=== PATIENT | female | born 2000 | race Caucasian/White ===

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

== ENCOUNTER 2023-06-27 08:16 | Emergency (ER) | payer BC, MEDICAID ==
[2023-06-27 08:46] VITALS: O2SAT 100
--- NOTE | 2023-06-27 09:33 | ED Physician Documentation ---
PD HPI SKIN - Stated complaint Stated Complaint: BRUISES STOMACH/RT LEG - Chief complaint Chief Complaint: General - History obtained from History obtained from: Patient - History of Present Illness Timing - onset: How many months ago (1) Timing - duration: Months (1) Timing - details: Gradual onset, Still present (she has noted bruising on arms and legs, some on abdomen over the past month. Not tender and not aware of abrupt injuries. Notes bruises and then they fade, but others arise. No petechia, but are 2-3 cm sized areas. No bruising in nonexposed areas (inner thighs, underarms, neck, etcv).) Location: Other (arms and legs, lower abd) Quality / character: Discolored. No: Painful, Vesicular Associated symptoms: Other (generally faitigued and tired. Able to do regular work during the day, full day. Has had some weight loss of about 15-20 lbs during the time. 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 Holds against abd). No: Fever, Myalgias, Joint pain, Headache Similar symptoms before: Has not had sx before Review of Systems Constitutional: reports: Fatigue. denies: Fever, Chills Nose: denies: Rhinorrhea / runny nose, Congestion, Epistaxis Throat: denies: Sore throat Cardiac: denies: Palpitations Respiratory: denies: Dyspnea, Cough GI: denies: Abdominal Pain, Vomiting, Diarrhea, Hematemesis, Bloody / black stool : denies: Dysuria Neurologic: denies: Focal weakness, Numbness PD PAST MEDICAL HISTORY - Past Medical History Cardiovascular: None Respiratory: None Neuro: None GI: GERD DIRECT SALES PROFESSIONAL: None : None HEENT: None Psych: None Musculoskeletal: None Derm: None - Past Surgical History Past Surgical History: No - Present Medications Home Medications: Ambulatory Orders Medication Instructions Recorded Confirmed No Known Home Medications 06/27/23 06/27/23 - Allergies Allergies/Adverse Reactions: Allergies Allergy/AdvReac Type Severity Reaction Status Date / Time No Known Drug Allergies Allergy Verified 06/27/23 08:24 - Social History Does the pt smoke?: No Smoking Status: Never smoker Does the pt drink ETOH?: No Does the pt have substance abuse?: No - Immunizations Immunizations are current?: Yes - POLST Patient has POLST: No PD ED PE NORMAL - Vitals Vital signs reviewed: Yes - General General: Alert and oriented X 3, No acute distress, Well developed/nourished - Neck Neck: Supple, no meningeal sign, No adenopathy - Cardiac Cardiac: RRR, No murmur - Respiratory Respiratory: No respiratory distress, Clear bilaterally - Abdomen Abdomen: Soft, Non tender, No organomegaly - Derm Derm: Normal color, Warm and dry - Extremities Extremities: Normal ROM s pain, Other (there are green to yellow fading bruises anterior lower legs and lower thighs. None posteriorly. Some also forearms and biceps area. Some lower abd. None are tender. No petechia noted. ) - Neuro Neuro: Alert and oriented X 3, No motor deficit, No sensory deficit Results - Vitals Vitals: Oxygen O2 Source Room air - Labs Labs: Laboratory Tests 06/27/23 06/27/23 06/27/23 10:23 10:23 10:25 WBC 6.3 RBC 4.37 Hgb 13.1 Hct 39.0 MCV 89.2 MCH 30.0 MCHC 33.6 RDW 12.9 Plt Count 261 MPV 10.0 Neut # (Auto) 4.0 Lymph # (Auto) 1.9 Dawson # (Auto) 0.4 Eos # (Auto) 0.1 Baso # (Auto) 0.0 Absolute Nucleated RBC 0.00 Nucleated RBC % 0.0 PT 12.8 H INR 1.2 APTT 32.7 Sodium 138 Potassium 3.9 Chloride 104 Carbon Dioxide 28 Anion Gap 6.0 BUN 10 Creatinine 0.7 Estimated GFR (MDRD) 106 Glucose 97 Calcium 9.5 Total Bilirubin 0.5 AST 15 ALT 18 Alkaline Phosphatase 48 Total Protein 7.8 Albumin 4.7 Globulin 3.1 Albumin/Globulin Ratio 1.5 Lipase 25 TSH 1.36 Serum HCG, Qual NEGATIVE PD Medical Decision Making - ED course Complexity details: reviewed results (basic labs of CBC, chemistry, kidney function glucose and TSH are m=normal. No apparent obvious metabolic abnormal. ), considered differential (noted fatigue, weight loss, easy bruising without apparent impact t=injuries. Has had new job at [employer] which is physical, and involves baskets of mussels being carried etc with some pressure against arms and legs, and holds against abd for support. ), d/w patient Reviewed Lab Results: normal CBC and platelets in particular. PT/PPT normal without apparent prolonged coag. TSH normal. Not diabetic. CHemistry normal including LFTs. No apparent cause for unusual bruising. I wonder if it is appropriate bruising from repetitive impact from the work she is doing without being forceful impact. The bruisings come out purple/green per pt, so are deeper bruisings. Fatigue and weight loss could be from the activity/energy involved in it. Prior job was desk/office related so less energetic. Departure - Departure Disposition: Home, Self Care Clinical Impression: Easy bruising, Weight loss Condition: Stable Record reviewed to determine appropriate education?: Yes Follow-Up: [facility] [Provider Group] [facility] [Provider Group] Comments: Your basic blood tests here including a blood count, chemistry panel, thyroid and diabetes screens and coagulation testing are normal. No signs of serious medical problems or abnormalities. All your tests were actually all normal. At this point I presume the bruising is related to just the activity that you are doing. Similar with the weight loss. That said if you find that the symptoms continue or worsen then I would suggest following up with primary care to decide if further testing is needed. We did cover basics here today of the white count, blood count so no signs of anemia, n ormal platelets which contribute to bruising. Also no signs of diabetes, thyroid disorder, liver or kidney problems, electrolyte disorders. Forms: PCP List Discharge Date/Time: 06/27/23 12:24
[2023-06-27 10:31] LABS: BASOPHILS % (AUTO) 0.5 %; EOSINOPHILS # (AUTO) 0.1 10^3/uL (0.0-0.7); EOSINOPHILS % (AUTO) 1.3 %; HGB - HEMOGLOBIN 13.1 g/dL (12.0-16.0); LYMPHOCYTES # (AUTO) 1.9 10^3/uL (1.5-3.5); LYMPHOCYTES % (AUTO) 29.6 %; MEAN CORPUSCULAR HGB CONC 33.6 g/dL (32.0-36.0); MEAN CORPUSCULAR VOLUME 89.2 fL (81.0-99.0); MONOCYTES # (AUTO) 0.4 10^3/uL (0.0-1.0); MONOCYTES % (AUTO) 5.5 %; NEUTROPHILS % (AUTO) 62.8 %; PLT - PLATELET COUNT 261 10^3/uL (130-450); RED BLOOD COUNT 4.37 10^6/uL (4.20-5.40); RED CELL DISTRIBUTION WIDTH 12.9 % (12.0-15.0); WHITE BLOOD COUNT 6.3 x10^3/uL (4.8-10.8)
[2023-06-27 10:43] LABS: PARTIAL THROMBOPLASTIN TIME 32.7 secs (24.9-33.3)
[2023-06-27 10:44] LABS: ALBUMIN 4.7 g/dL (3.2-5.5); ALBUMIN/GLOBULIN RATIO 1.5 (1.0-2.2); ALKALINE PHOSPHATASE 48 IU/L (42-121); ALT ALANINE AMINOTRANSFERASE 18 IU/L (10-60); AST ASPARTATE AMINOTRANSFERASE 15 IU/L (10-42); BILIRUBIN,TOTAL 0.5 mg/dL (0.2-1.0); BUN - BLOOD UREA NITROGEN 10 mg/dL (6-20); CALCIUM 9.5 mg/dL (8.5-10.3); CARBON DIOXIDE - CO2 28 mmol/L (21-32); CHLORIDE 104 mmol/L (101-111); CREATININE 0.7 mg/dL (0.6-1.3); GFR - MDRD 106 (>89); GLUCOSE 97 mg/dL (74-104); LIPASE 25 U/L (11-82); POTASSIUM 3.9 mmol/L (3.5-4.5); SODIUM 138 mmol/L (135-145); TOTAL PROTEIN 7.8 g/dL (6.4-8.9)
[2023-06-27 10:47] LABS: INR 1.2 (0.8-1.2); PT - PROTHROMBIN TIME 12.8 secs (9.9-12.6)
[2023-06-27 10:52] LABS: HCG,QUALITATIVE BLOOD NEGATIVE
[2023-06-27 11:01] LABS: THYROID STIMULATING HORMONE 1.36 uIU/mL (0.34-5.60)
[2023-06-27 12:33] VITALS: BP 122/76
== END 2023-06-27 12:24 | disposition home or self-care (01) ==
LOC: ED 08:16
DX: S80.10XA Contusion of unspecified lower leg, initial encounter (principal); S40.029A Contusion of unspecified upper arm, initial encounter; R63.4 Abnormal weight loss; X58.XXXA Exposure to other specified factors, initial encounter
CPT/HCPCS: 36415; 80053; 83690; 84443; 84703; 85025; 85610; 85730; 99283